=== PATIENT | female | born 2000 | race Caucasian/White ===

== ENCOUNTER 2019-07-08 22:27 | Emergency (ER) | payer BC ==
[~2019-07-08] VITALS: Ht 165.1 cm; Wt 66.3 kg
[~2019-07-08 22:27] MED LIST: SERT100T PO
[2019-07-08 22:30] VITALS: BP 125/84
== END 2019-07-09 00:01 | disposition home or self-care (01) ==
LOC: ED 23:20
DX: S83.91XA Sprain of unspecified site of right knee, initial encounter (principal); X50.1XXA Overexertion from prolonged static or awkward postures, initial encounter; Y93.66 Activity, soccer; Y92.322 Soccer field as the place of occurrence of the external cause; Y99.8 Other external cause status
CPT/HCPCS: 29505; 99283